=== PATIENT | female | born 1930 | race Caucasian/White ===

== ENCOUNTER 2020-01-16 11:51 | Observation (INO) | payer MEDICARE, OTHER ==
[~2020-01-16] VITALS: Ht 160 cm; Wt 61.7 kg
[2020-01-16] MEDS ORDERED: RIVAROXABAN 20 MG TABLET PO ONE (12:30)
[2020-01-16 12:48] LABS: BASOPHILS % 0.2 % (0.0-1.0); HEMATOCRIT 36.5 % (34.2-44.1); HEMOGLOBIN 11.7 g/dL (12.0-16.0); LYMPHOCYTES # (AUTO) 0.9 (1.0-3.2); LYMPHOCYTES % 7.8 % (18.0-39.1); MEAN CORPUSCULAR HEMOGLOBIN 29.1 pg (28-32); MEAN CORPUSCULAR HGB CONC 32.1 g/dL (31-35); MEAN CORPUSCULAR VOLUME 90.8 fL (81-99); MONOCYTES # (AUTO) 1.1 (0.2-0.8); MONOCYTES % 9.8 % (4.4-11.3); NEUTROPHILS # (AUTO) 9.2 (2.1-6.9); NEUTROPHILS % 81.8 % (38.7-80.0); PLATELET COUNT 202 x10e3/uL (140-360); RED BLOOD COUNT 4.02 x10e6/uL (3.6-5.1); RED CELL DISTRIBUTION WIDTH 12.4 % (11.7-14.4)
--- NOTE | 2020-01-16 12:54 | Emergency Department Note ---
History of Present Illnes History of Present Illness Chief Complaint: General Medicine Complaints History of Present Illness This is a 89 year old female arrived to the ED with left leg pain and swelling. Patient states granddaughter brought her to outpatient radiology for DVT study that was positive. Patient complaining of worsening pain, denies any chest pain shortness of breath . Chief Complaint Comment PATIENT STATES SHE HAS HAD LEFT LEG PAIN X 2 DAYS, WORSE THIS MORNING. STATES TODAY SHE WAS UNABLE TO GET OUT OF BED AND WALK TODAY. PATIENT STATES SHE WAS SENT FROM RADIOLOGY BECAUSE SHE HAS A DVT IN HER LEFT LEG. PATIENT ALERT AND ORIENTED, RESP EVEN AND NONLABORED, APPEARS IN NO DISTRESS, RATES PAIN 10/23 Historian: Patient, Family Member Arrival Mode: Car Onset (how long ago): day(s) Radiation: Reports non-radiation Severity: mild Onset quality: gradual Duration (how long): day(s) Timing of current episode: constant Progression: worsening Past Medical/Family History Physician Review I have reviewed the patient's past medical and family history. Any updates have been documented here. Past Medical History Recent Fever: No Clinical Suspicion of Infectio: No New/Unexplained Change in Ment: No Past Medical History: Hypertension, Hypothyroidism, Chronic Kidney Disease Other Medical History: GLAUCOMA Social History Smoking Cessation: Never Smoker Counseling Performed: No Alcohol Use: None Any Illegal Drug Use: No Physically hurt or threatened: No Other Any Pre-Existing Lines (PICC,: No Review of Systems Review of Systems Constitutional: Reports no symptoms EENTM: Reports no symptoms Cardiovascular: Reports no symptoms Respiratory: Reports no symptoms Gastrointestinal: Reports no symptoms Genitourinary: Reports no symptoms Musculoskeletal: Reports as per HPI, Reports joint pain, Reports joint swelling, Reports muscle pain, Reports muscle stiffness Integumentary: Reports no symptoms Neurological: Reports no symptoms Psychological: Reports no symptoms Endocrine: Reports no symptoms Hematological/Lymphatic: Reports no symptoms Physical Exam Related Data Allergies: Coded Allergies: iodine (Verified Allergy, Severe, 01/16/20) Triage Vital Signs Vital Signs Date Time Temp Pulse Resp B/P (MAP) Pulse Ox O2 Delivery O2 Flow Rate FiO2 01/16/20 11:52 90 20 161/77 100 Room Air Vital signs reviewed: Yes Physical Exam CONSTITUTIONAL Constitutional: Present well-developed, Present well-nourished HENT HENT: Present normocephalic, Present atraumatic, Present oropharynx clear/moist, Present nose normal HENT L/R: Present left ext ear normal, Present right ext ear normal EYES Eyes: Reports PERRL, Reports conjunctivae normal NECK Neck: Present ROM normal PULMONARY Pulmonary: Present effort normal, Present breath sounds normal CARDIOVASCULAR Cardiovascular: Present regular rhythm, Present heart sounds normal, Present capillary refill normal, Present normal rate GASTROINTESTINAL Abdominal: Present soft, Present nontender, Present bowel sounds normal GENITOURINARY Genitourinary: Present exam deferred SKIN Skin: Present warm, Present dry MUSCULOSKELETAL Musculoskeletal: Present edema, Present deformity, Present tenderness, Present swelling NEUROLOGICAL Neurological: Present alert, Present oriented x 3, Present no gross motor or sensory deficits PSYCHOLOGICAL Psychological: Present mood/affect normal, Present judgement normal Results Laboratory Laboratory Laboratory Tests Test 01/16/20 12:37 Lab results reviewed: Yes Laboratory comments Laboratory Tests Test 01/17/20 05:56 White Blood Count 9.57 x10e3/uL (4.8-10.8) Red Blood Count 3.68 x10e6/uL (3.6-5.1) Hemoglobin 10.4 g/dL (12.0-16.0) Hematocrit 33.3 % (34.2-44.1) Mean Corpuscular Volume 90.5 fL (81-99) Mean Corpuscular Hemoglobin 28.3 pg (28-32) Mean Corpuscular Hemoglobin Concent 31.2 g/dL (31-35) Red Cell Distribution Width 12.7 % (11.7-14.4) Platelet Count 202 x10e3/uL (140-360) Neutrophils (%) (Auto) 66.3 % (38.7-80.0) Lymphocytes (%) (Auto) 20.7 % (18.0-39.1) Monocytes (%) (Auto) 11.3 % (4.4-11.3) Eosinophils (%) (Auto) 0.8 % (0.0-6.0) Basophils (%) (Auto) 0.4 % (0.0-1.0) Neutrophils # (Auto) 6.3 (2.1-6.9) Lymphocytes # (Auto) 2.0 (1.0-3.2) Monocytes # (Auto) 1.1 (0.2-0.8) Eosinophils # (Auto) 0.1 (0.0-0.4) Basophils # (Auto) 0.0 (0.0-0.1) Absolute Immature Granulocyte (auto 0.05 x10e3/uL (0-0.1) Sodium Level 134 mmol/L (136-145) Potassium Level 4.4 mmol/L (3.5-5.1) Chloride Level 103 mmol/L (98-107) Carbon Dioxide Level 25 mmol/L (22-29) Anion Gap 10.4 mmol/L (8-16) Blood Urea Nitrogen 31 mg/dL (7-26) Creatinine 1.17 mg/dL (0.57-1.11) Estimat Glomerular Filtration Rate 44 ML/MIN (60-) BUN/Creatinine Ratio 26 (6-25) Glucose Level 112 mg/dL (74-118) Calcium Level 8.8 mg/dL (8.4-10.2) Total Bilirubin 0.6 mg/dL (0.2-1.2) Aspartate Amino Transf (AST/SGOT) 20 IU/L (5-34) Alanine Aminotransferase (ALT/SGPT) 18 IU/L (0-55) Alkaline Phosphatase 86 IU/L (40-150) Creatine Kinase 55 IU/L (29-168) Creatine Kinase MB 1.20 ng/mL (0-5.0) Troponin I 0.020 ng/mL (0-0.300) Total Protein 6.4 g/dL (6.5-8.1) Albumin 3.0 g/dL (3.5-5.0) Globulin 3.4 g/dL (2.3-3.5) Albumin/Globulin Ratio 0.9 (0.8-2.0) Imaging Imaging results reviewed: Yes Assessment & Plan Medical Decision Making MDM 89-year-old female arrived to the ED with complaints of left-sided lower extremity pain and swelling. Patient also complained of chest pain. Patient admitted for cardiac optimization and further workup. Assessment & Plan Final Impression: (1) DVT (deep venous thrombosis) Depart Disposition: ADMITTED Last Vital Signs Date Time Temp Pulse Resp B/P (MAP) Pulse Ox O2 Delivery O2 Flow Rate FiO2 01/16/20 11:52 90 20 161/77 100 Room Air Home Meds Reported Medications Timolol (BETIMOL) 5 Ml Drops, 1 DROP OS BID 01/16/20 Latanoprost (LATANOPROST) 2.5 Ml Drops, 2.5 ML OP HS, ML 01/16/20 Dorzolamide Hcl (DORZOLAMIDE HCL) 10 Ml Drops, 10 ML OS BID, DROP 01/16/20 Docusate Sodium (DOCUSATE SODIUM) 100 Mg Capsule, 100 MG PO DAILY, CAP 01/16/20 Potassium Chloride (POTASSIUM CHLORIDE) 20 Meq Tab.er.prt, PO DAILY 01/16/20 Ferrous Sulfate (FERROUS SULFATE) 324 Mg Tablet.dr, 1 TAB PO DAILY 01/16/20 Aspirin (ASPIRIN) 81 Mg Tab.chew, 81 MG PO DAILY 01/16/20 Levothyroxine Sodium (LEVOTHYROXINE SODIUM) 75 Mcg Tablet, 75 MCG PO DAILY@0600, #30 TAB 01/16/20 Gabapentin (GABAPENTIN) 300 Mg Capsule, 300 MG PO DAILY, #60 CAP 01/16/20 Irbesartan (IRBESARTAN) 150 Mg Tablet, 150 MG PO DAILY, #30 TAB 01/16/20 Niacin (Niacin ER) 1,000 Mg Tab.er.24h, 1000 MG PO HS, TAB 01/16/20 Rosuvastatin Calcium (CRESTOR) 10 Mg Tab, 10 MG PEG HS THERAPEUTICALLY SUBSTITUTED WITH SIMVASTATIN 40MG 01/16/20 Raloxifene Hcl (EVISTA) 60 Mg Tablet, 60 MG PO DAILY, #30 TAB 01/16/20 Medications in the ED Rivaroxaban 20 mg ONCE ONCE PO ; Start 01/16/20 at 12:30; Stop 01/16/20 at 12:31; Status COLLIN MONTOYA DO Jan 16, 2020 12:58
[2020-01-16] MEDS ORDERED: HYDROCODONE/APAP 5MG-325MG TAB PO ONE (13:00)
[2020-01-16 13:01] LABS: INR 1.06; PROTHROMBIN TIME 14.3 seconds (11.9-14.5)
[2020-01-16 13:10] LABS: ALBUMIN 3.6 g/dL (3.5-5.0); ANION GAP 15.4 mmol/L (8-16); CALCIUM 9.4 mg/dL (8.4-10.2); CREATININE, SERUM 1.07 mg/dL (0.57-1.11); POTASSIUM 4.4 mmol/L (3.5-5.1)
[2020-01-16 13:20] LABS: CREATINE KINASE MB 1.5 ng/mL (0-5.0)
[2020-01-16 13:39] VITALS: BP 158/87
[2020-01-16] MEDS ORDERED: LATANOPROST2.5 ML OP (14:03)
[2020-01-16] MEDS ORDERED: DORZOLAMIDE HCL10 ML OS (14:03)
[2020-01-16] MEDS ORDERED: GABAPENTIN300 MG PO (14:03)
[2020-01-16] MEDS ORDERED: POTASSIUM CHLO20 ME1 PO (14:03)
[2020-01-16] MEDS ORDERED: LEVOTHYROXINE75 MCG PO (14:03)
[2020-01-16] MEDS ORDERED: ASPIRIN81 MG PO (14:03)
[2020-01-16] MEDS ORDERED: EVISTA60 MG PO (14:03)
[2020-01-16] MEDS ORDERED: CRESTOR10 MG PEG (14:03)
[2020-01-16] MEDS ORDERED: DOCUSATE SODIU100 MG PO (14:03)
[2020-01-16] MEDS ORDERED: BETIMOL5 M1 OS (14:03)
[2020-01-16] MEDS ORDERED: FERROUS SULFAT324 MG PO (14:03)
[2020-01-16] MEDS ORDERED: IRBESARTAN150 MG PO (14:03)
[2020-01-16] MEDS ORDERED: NIACIN ER1000 MG PO (14:03)
[2020-01-16 14:15] VITALS: BP 158/87
[2020-01-16 14:30] VITALS: BP 158/87
--- NOTE | 2020-01-16 15:12 | Diagnostic Imaging Report ---
Perfusion Lung Scan NOTE: Lung ventilation studies with xenon are not being performed per the recommendation of the Society of Nuclear [employer] and [employer]. It is not possible to be certain that the ventilation system is adequately disinfected. Ventilation studies with Tc-99m DTPA particles is contraindicated because the delivery by nebulization generates too many water droplets from the patient's airway. Reason for exam: Acute DVT of LE; positive Doppler ultrasound 01/16/2020 Comparison: None Discussion: Ventilation images were not obtained. See note above. Perfusion images of the lungs were obtained in multiple projections following intravenous administration of approximately 6 mCi of Tc-99m MAA. Distribution of tracer is mildly irregular throughout the lungs. No segmental perfusion defects of any size are identified. The cardiomediastinal silhouette is unremarkable. Impression: 1. Scan findings represent a VERY LOW probability for acute pulmonary embolic disease based on the perfusion only modified PIOPED II criteria. Concurrent ventilation study would not alter the assigned probability for acute PE. 2. Scan findings are compatible with diffuse parenchymal and/or obstructive lung disease. Signed by: Dr. Nazia Medina M.D. on 01/16/2020 3:09 PM
[2020-01-16 16:14] VITALS: BP 137/75
[2020-01-16] MEDS: ACETAMINOPHEN 325 MG TAB PO PRN (18:32)
--- NOTE | 2020-01-16 19:35 | NUR ---
Patient received sitting up in bed. AAO x 3. Granddaughter at bedside. Patient had no complaints of pain. Respirations even and non-labored. Patient instructed to call for assistance when needed. Call light within reach.
[2020-01-16 20:00] VITALS: BP 131/66
[2020-01-16 21:00] VITALS: BP 131/66
[2020-01-16] MEDS ORDERED: LATANOPROST(OPTH) 2.5 ML BTL OP SCH (21:00)
[2020-01-16] MEDS ORDERED: NIACIN 500 MG TABSR PO SCH (21:00)
[2020-01-16] MEDS ORDERED: SIMVASTATIN 20 MG TAB PEG SCH (21:00)
[2020-01-17] VITALS: BP 140/67
[2020-01-17 04:00] VITALS: BP 143/80
[2020-01-17] MEDS ORDERED: LEVOTHYROXINE SODIUM 75 MCG TAB PO SCH (06:00)
[2020-01-17 06:19] LABS: BASOPHILS % 0.4 % (0.0-1.0); EOSINOPHILS # (AUTO) 0.1 (0.0-0.4); EOSINOPHILS % 0.8 % (0.0-6.0); HEMATOCRIT 33.3 % (34.2-44.1); HEMOGLOBIN 10.4 g/dL (12.0-16.0); LYMPHOCYTES % 20.7 % (18.0-39.1); MEAN CORPUSCULAR HEMOGLOBIN 28.3 pg (28-32); MEAN CORPUSCULAR HGB CONC 31.2 g/dL (31-35); MEAN CORPUSCULAR VOLUME 90.5 fL (81-99); MONOCYTES # (AUTO) 1.1 (0.2-0.8); MONOCYTES % 11.3 % (4.4-11.3); NEUTROPHILS # (AUTO) 6.3 (2.1-6.9); NEUTROPHILS % 66.3 % (38.7-80.0); PLATELET COUNT 202 x10e3/uL (140-360); RED BLOOD COUNT 3.68 x10e6/uL (3.6-5.1); RED CELL DISTRIBUTION WIDTH 12.7 % (11.7-14.4)
[2020-01-17 06:50] LABS: CREATINE KINASE MB 1.2 ng/mL (0-5.0)
--- NOTE | 2020-01-17 06:55 | NUR ---
Patient resting comfortably. AAO x 3. No acute distress noted. Walking rounds done. Shift report given to oncoming nurse.
[2020-01-17 07:25] LABS: ALBUMIN/GLOBULIN RATIO 0.9 (0.8-2.0); ANION GAP 10.4 mmol/L (8-16); CALCIUM 8.8 mg/dL (8.4-10.2); CREATININE, SERUM 1.17 mg/dL (0.57-1.11); POTASSIUM 4.4 mmol/L (3.5-5.1)
[2020-01-17 08:11] VITALS: BP 144/77
[2020-01-17] MEDS ORDERED: RIVAROXABAN 15 MG TABLET PO SCH (09:00)
[2020-01-17] MEDS ORDERED: GABAPENTIN 300 MG CAP PO SCH (09:00)
[2020-01-17] MEDS ORDERED: ASPIRIN 81 MG CHEW TAB PO SCH (09:00)
[2020-01-17] MEDS ORDERED: DOCUSATE SODIUM 100 MG CAP PO SCH (09:00)
[2020-01-17] MEDS ORDERED: DORZOLAMIDE HCL (OPTH) 10 ML BOTTLE OP SCH (09:00)
[2020-01-17] MEDS ORDERED: IRBESARTAN 150 MG TAB PO SCH (09:00)
[2020-01-17] MEDS ORDERED: TIMOLOL MALEATE 0.5% OPTH DRP 5 ML BTL OP SCH (09:00)
[2020-01-17] MEDS ORDERED: RALOXIFENE HCL 60 MG TAB PO SCH (09:00)
[2020-01-17 09:48] VITALS: BP 144/77
[2020-01-17] MEDS: ACETAMINOPHEN 325 MG TAB PO PRN (09:53)
--- NOTE | 2020-01-17 11:40 | NUR ---
SPOKE WITH DAUGHTER OUTSIDE ROOM, SHE STATES HER MOTHER IS ON BEDSIDE COMMODE AND I CANT GO IN, TALKED TO HER ABUT HOME HEALTH ORDER, SHE STATES SHE WILL CALL THE PT PCP TO FIND OUT WHOM THEY RECOMMEND AND GET BACK TO ME. GAVE CARD FOR ANY FURTHER QUESTIONS.
[2020-01-17 11:44] VITALS: BP 141/66
--- NOTE | 2020-01-17 12:15 | History and Physical ---
HISTORY OF PRESENT ILLNESS: The patient is an 89-year-old female with past medical history positive for osteoporosis, hypothyroidism, and hypercholesterolemia. Apparently, she had an injury on her left leg. She developed swelling on the leg, came to the ER. She was found DVT of the legs. V/Q scan was negative for pulmonary embolism. She is going home today with home health. She has been started on Xarelto. REVIEW OF SYSTEMS: CARDIOVASCULAR: No chest pain or palpitation. RESPIRATORY: No shortness of breath. No cough. GASTROINTESTINAL: No nausea, vomiting, or diarrhea. GENITOURINARY: No frequency. No dysuria. ALLERGIES: TO IODINE. PAST MEDICAL HISTORY: Hypertension, hypothyroidism, hypercholesterolemia, and osteoporosis. SOCIAL HISTORY: She does not smoke. She does not drink. PHYSICAL EXAMINATION: VITAL SIGNS: Blood pressure 144/77, temperature 98.5, heart rate 90 per minute, respiratory rate 16 per minute, and oxygen saturation 98%. LABORATORY DATA: On the CBC; white blood count 9.57, hemoglobin 10.4, hematocrit 33.3, and platelet count 202,000. On the BMP; sodium 134, potassium 4.4, chloride 103, CO2 25, BUN 31, creatinine 1.17, glucose 112, and calcium 8.8. Total bilirubin 0.6, AST 20, ALT 18, and alkaline phosphatase 86. Troponin x3 negative. Total protein 6.4 and albumin 3.0. Coronavirus test is pending. IMAGING: She had a V/Q scan came back low probability for PE. Scan findings are compatible with diffuse parenchymal and/or obstructive-like disease. FINAL IMPRESSION: 1. Deep venous thrombosis on the left leg. 2. Hypertension. 3. Hypothyroidism. 4. Hypercholesterolemia. 5. Possible acute versus chronic renal failure. The patient is going to be started on Xarelto 15 mg twice a day for 3 weeks and then 20 mg daily for total of 3 months. She is going to follow up with primary care physician regarding the acute renal failure. She is going to need a BMP done as an outpatient. GFR is 44. I told the patient to use caution not to take any nonsteroidal anti-inflammatories or aspirin during the time and the patient probably is going to go home today. MD JON Hare/CELINE /[id number]
--- NOTE | 2020-01-17 13:46 | Discharge Summary ---
HOSPITAL COURSE: The patient is an 89-year-old female, past medical history positive for hypertension, hypothyroidism, and osteoporosis, was found to have DVT in the left lower extremities, started on Xarelto. She is going home today. She is going to get home health for physical and occupational therapy. She was told not to take any aspirin or any anti-inflammatories while on Xarelto and to monitor BUN and creatinine as an outpatient. She has very mild acute renal failure. PHYSICAL EXAMINATION: HEART: Showed regular rhythm. Normal S1 and S2 sound. LUNGS: Clear bilaterally. ABDOMEN: Soft. EXTREMITIES: Show edema on the left lower extremity. FINAL IMPRESSION: 1. Deep venous thrombosis on the left leg. 2. Hypertension. 3. Hypothyroidism. 4. Hypercholesterolemia. 5. Acute renal failure. TREATMENT AND PLAN: As I said, we are going to continue medication that I already dictated in my prior history and physical. Follow up with her primary care physician in a week. The patient was told to abstain from any adventurous activities and to avoid any nonsteroidals and aspirin also, and monitor BUN and creatinine also, which is extremely critical since the patient going to be taking Xarelto. She has very mild renal insufficiency when she came. The creatinine was completely normal. When she came, it was a little bit elevated prior because of dehydration today. She is okay to take Xarelto. The case was discussed with the patient and the granddaughter at the bedside. MD JON Hare/CELINE /[id number]
--- NOTE | 2020-01-17 15:21 | NUR ---
CALLED BACK AND STATES [facility] IS CHOICE, FAXED CLINICALS TO COMPANY AND GOT SET UP. CONFIRMED RECEIPT AND THEY WILL BE SEEING THE PT TOMORROW AT THE DAUGHTER CORRECT ADDRESS NOT ON FACESHEET. [address] [facility] [facility] [id number],
[2020-01-17 16:08] VITALS: BP 159/67
== END 2020-01-17 16:50 | disposition home health service (06) ==
LOC: ER 12:07 → ERHOLD 13:01 → MED/SURG3 13:27
PROVIDERS: ADMIT Internal Medicine; ATTEND Internal Medicine
DX: I82.4Z2 Acute embolism and thrombosis of unspecified deep veins of left distal lower extremity (principal); E03.9 Hypothyroidism, unspecified; I12.9 Hypertensive chronic kidney disease with stage 1 through stage 4 chronic kidney disease, or unspecified chronic kidney disease; N18.9 Chronic kidney disease, unspecified; Z91.041 Radiographic dye allergy status; M81.0 Age-related osteoporosis without current pathological fracture; E78.00 Pure hypercholesterolemia, unspecified; I48.0 Paroxysmal atrial fibrillation; N17.9 Acute kidney failure, unspecified; Z11.59 Encounter for screening for other viral diseases; R07.9 Chest pain, unspecified
CPT/HCPCS: 36415 ×2; 78582; 80053 ×2; 82550 ×2; 82553 ×2; 84484 ×2; 85025 ×2; 85610; 97139; 99284; A9540; G0378 ×2; U0002

== ENCOUNTER → 2020-01-16 | Outpatient (CLI) | payer MEDICARE, OTHER ==
[~2020-01-16] MED LIST: ASPIRIN81 MG PO; BETIMOL5 M1 OS; CRESTOR10 MG PEG; DOCUSATE SODIU100 MG PO; DORZOLAMIDE HCL10 ML OS; EVISTA60 MG PO; FERROUS SULFAT324 MG PO; GABAPENTIN300 MG PO; IRBESARTAN150 MG PO; LATANOPROST2.5 ML OP; LEVOTHYROXINE75 MCG PO; NIACIN ER1000 MG PO; POTASSIUM CHLO20 ME1 PO
== END ==
LOC: RAD 10:31
PROVIDERS: ATTEND Radiology Vascular & Interventional Radiology
DX: M79.662 Pain in left lower leg (principal); I82.412 Acute embolism and thrombosis of left femoral vein; M79.89 Other specified soft tissue disorders
CPT/HCPCS: 93971

== ENCOUNTER → 2020-02-06 | Outpatient (CLI) | payer MEDICARE, OTHER ==
--- NOTE | 2020-02-06 13:58 | Diagnostic Imaging Report ---
Ultrasound examination of the right wrist History: Right wrist pain and swelling Technique: Linear transducer used to perform evaluation of the right wrist region of interest. Additionally 2-D imaging of the region of the veins without and with compression, color flow mapping and spectral Doppler was obtained. Comparison: None Findings: The visualized cephalic, brachial, ulnar, radial veins are patent and compressible. There is no mass or cyst. There is no subcutaneous edema. Impression: Unremarkable exam. Signed by: Amarjit Anders MD on 02/06/2020 1:55 PM
--- NOTE | 2020-02-06 14:47 | Diagnostic Imaging Report ---
Exam: Right wrist Series. History: Swelling and pain for 3 days, history of CABG and arthritis, no history of trauma, started occupational therapy 2 weeks ago Comparison: None. Findings: 3 views of the right wrist. There is decreased bone mineralization/generalized osteopenia. Negative for acute, displaced fracture or dislocation. Widening of the scapholunate interval, with slight rotation of the lunate. Associated chondrocalcinosis, extending to the region of the triangular fibrocartilage complex. Mild narrowing of the radiocarpal joint. Moderate soft tissue swelling surrounding the wrist. Impression: 1. Findings suggestive of CPPD arthropathy, with evidence of chondrocalcinosis and widening of the scapholunate interval. 2. Generalized osteopenia. 3. Moderate soft tissue swelling surrounding the wrist. Signed by: Dr. Julius Reina M.D. on 02/06/2020 2:44 PM
== END ==
LOC: US 12:52
PROVIDERS: ATTEND Family Medicine
DX: M25.531 Pain in right wrist (principal); M25.431 Effusion, right wrist
CPT/HCPCS: 76882

== ENCOUNTER → 2020-03-18 | Outpatient (CLI) | payer OTHER ==
[~2020-03-18] MED LIST changes: +COVID-19 VACC, MRNA(MODERNA)/PF 100 MCG/0.5 ML VIAL IM ONE
== END ==
LOC: VACCPMC 08:30
DX: Z23 Encounter for immunization (principal); Z20.822 Contact with and (suspected) exposure to COVID-19

== ENCOUNTER → 2020-04-22 | Outpatient (CLI) | payer MEDICARE, OTHER | END | DRG 951 | LOC: VACCPMC 08:20 | DX: Z23 Encounter for immunization (principal); Z20.822 Contact with and (suspected) exposure to COVID-19 | CPT/HCPCS: 0012A; 91301 ==